=== PATIENT | female | born 1990 | race Caucasian/White ===

== ENCOUNTER 2019-08-25 19:27 | Outpatient (REF) | payer MEDICAID, SELFPAY ==
[2019-08-25 20:19] LABS: HCT 38.4 % (36.0-46.0); HGB 13.6 g/dL (12.0-15.5); Mean Corp. HGB Concentration 35.4 g/dL (32.0-36.0); Mean Corpuscular Volume 84.8 fL (80-95); Mean Platelet Volume 10.7 fL (8.0-11.0); Platelet Count 327 x1000/uL (130-400); RBC 4.53 m/cumm (4.00-5.20); RBC Distribution Width 12.3 % (11.7-14.6); White Blood Cell Count 5.87 k/cumm (4.4-10.8)
[2019-08-25 20:53] LABS: ESR 7 mm/hr (0-20)
[2019-08-25 21:42] LABS: C-Reactive Protein 0.23 mg/dL (0.0-0.3); TSH (W/Ref FT4) 1.85 uIU/mL (0.36-3.74)
[2019-08-27 14:59] LABS: ANA Interpretation Negative (Negative)
== END 2019-08-25 19:47 ==
LOC: NCHCN 19:27
PROVIDERS: Visit Provider Nurse Practitioner Family
DX: M25.551 Pain in right hip (principal); R53.83 Other fatigue
CPT/HCPCS: 85027; 85652; 84443; 86038; 86140

== ENCOUNTER 2021-03-28 14:46 | Outpatient (REF) | payer MEDICAID, SELFPAY ==
[2021-03-30 11:34] LABS: COVID-19 RT-PCR UVMMC Result Negative (Negative)
== END 2021-03-28 14:47 | disposition home or self-care (01) ==
LOC: NCHCN 14:46
PROVIDERS: Visit Provider Nurse Practitioner Family
DX: Z20.822 Contact with and (suspected) exposure to COVID-19 (principal)
CPT/HCPCS: U0003

== ENCOUNTER → 2021-07-18 01:37 | Outpatient (CLI) | payer MEDICAID, SELFPAY ==
--- NOTE | 2021-07-18 06:30 | DI.CT_ITS ---
Exam(s) CT SINUS WO EXAM: CT SINUS WO CLINICAL HISTORY: r/o sinusitis - chronic, chronic facial pain, headache, chronic rhinitis. TECHNIQUE: Imaging Protocol: Axial computed tomography images with coronal and sagittal reformatted images were created and reviewed. No IV Contrast COMPARISON: No exams were available for comparison FINDINGS: MAXILLARY SINUSES: No significant mucosal thickening nor fluid levels. There is no evidence of bone dehiscence. OSTIOMEATAL UNITS: Patent bilaterally ETHMOIDAL AIR CELLS: Well aerated. No mucosal thickening nor fluid levels. SPHENOID SINUSES: Well aerated. No mucosal thickening nor fluid levels. FRONTAL SINUSES: Not developed. NASAL SEPTUM AND TURBINATES:Nasal septum is midline with no evidence of significant nasal septal spur . There is no evidence of pili bullosa. IMPRESSION: 1. No significant findings on this CT scan of the paranasal sinuses. 2. 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 RADIATION DOSE DELIVERED: 113.82mGy.cm Total DLP DATA REPOSITORY: All CT scans at this facility are submitted to the National Radiology Data Registry (NRDR) Dose Index Registry (DIR) with the [employer] (A[employer]). RADIATION OPTIMIZATION: All CT scans at this facility use at least one of these dose optimization te chniques: automated exposure control; mA and/or kV adjustment per patient size (includes targeted exa ms where dose is matched to clinical indication); or iterative reconstruction.
== END ==
PROVIDERS: PCP Nurse Practitioner Family; Visit Provider Otolaryngology
DX: R51.9 Headache, unspecified (principal); J31.0 Chronic rhinitis; G89.29 Other chronic pain
CPT/HCPCS: 70486

== ENCOUNTER 2022-01-22 18:31 | Outpatient (REF) | payer MEDICAID, SELFPAY ==
[2022-01-22 19:27] LABS: ALT 55 U/L (14-59); AST 28 U/L (15-37); Albumin 4.5 g/dL (3.4-5.0); Alkaline Phosphatase 68 U/L (46-116); Anion Gap 6.7 mmol/L (3-11); BUN 18 mg/dL (7-18); Bilirubin, Total 1.4 mg/dL (0.2-1.0); CO2 28.3 mmol/L (21.0-32.0); CREATININE 0.7 mg/dL (0.55-1.02); Calcium 9.6 mg/dL (8.5-10.1); Calculated LDL 95 mg/dL (<100); Chloride 102 mmol/L (98-107); Cholesterol 150 mg/dL (<200); Estimated GFR 117.77 (mL/min/1.73m2); Glucose 101 mg/dL (74-106); HDL Cholesterol 42 mg/dL (40-60); Potassium 4.4 mmol/L (3.5-5.1); Sodium 137 mmol/L (136-145); Triglyceride 68 mg/dL (<150)
== END 2022-01-22 18:32 | disposition home or self-care (01) ==
LOC: NCHCN 18:31
PROVIDERS: PCP Nurse Practitioner Family; Visit Provider Physician Assistant
DX: E66.9 Obesity, unspecified (principal); Z13.220 Encounter for screening for lipoid disorders; Z00.00 Encounter for general adult medical examination without abnormal findings
CPT/HCPCS: 80053; 80061

== ENCOUNTER 2024-06-05 10:11 | Emergency (ER) | payer BC, SELFPAY ==
[2024-06-05 10:12] VITALS: BP 127/85; PULSE 88; RESP 14; TEMP 36.5; O2SAT 99
--- NOTE | 2024-06-05 10:45 | DI.CT_ITS ---
Exam(s) CT HEAD WO EXAM: CT HEAD WO CLINICAL HISTORY: worsening headaches, blurred vision. TECHNIQUE: Imaging Protocol: Axial computed tomography images with coronal and sagittal reformatted images were created and reviewed COMPARISON: CT CT SINUS WO from 07/18/2021 FINDINGS: Ventricles and Extra axial spaces: Normal in size and morphology for the patient's age. Hemorrhage: None. Cerebral parenchyma: Normal. Midline shift: None. Brainstem/Cerebellum: Normal. Calvarium: Normal. Visualized Paranasal sinuses/Mastoids: Clear. Soft Tissues: Unremarkable. IMPRESSION: No acute intracranial process. RADIATION DOSE DELIVERED: 727.96mGy.cm Total DLP DATA REPOSITORY: All CT scans at this facility are submitted to the National Radiology Data Registry (NRDR) Dose Index Registry (DIR) with the [employer] (ACR). RADIATION OPTIMIZATION: All CT scans at this facility use at least one of these dose optimization te chniques: automated exposure control; mA and/or kV adjustment per patient size (includes targeted exa ms where dose is matched to clinical indication); or iterative reconstruction.
[2024-06-05 10:59] VITALS: RESP 18
[2024-06-05] MEDS: Ketorolac 15 MG/ML VIAL 7.5 MG IM (12:16)
[2024-06-05] MEDS: Bupivacaine 0.5% Pres-Free 30 ML VIAL IJ (12:18)
[2024-06-05] MEDS: Prochlorperazine 10 MG/2 ML VIAL IM (12:18)
--- NOTE | 2024-06-05 13:34 | W.ED.GENAD ---
Discharge Plan Disposition Patient Disposition: Home Condition: Stable Discharge Details Clinical Impression: Headache, Cervical radiculopathy, Left lumbar radiculopathy Primary Care Provider: Kenzie Melgar ED Provider: Meera Santos Home Meds and New Rx's Prescriptions: New prednisone 20 mg tablet 40 mg PO ONCE Qty: 10 0RF prochlorperazine maleate [Compazine] 10 mg tablet 10 mg PO Q6H PRNQty: 10 0RF Continued azelastine 137 mcg (0.1 %) aerosol,spray 1 spray intranasal BID Rx Instructions: administer into each nostril budesonide 32 mcg/actuation spray,non-aerosol 2 spray intranasal DAILY Qty: 8.43 12RF Rx Instructions: administer into each nostril Discharge Instructions Instructions: Headache, Adult ED Additional Instructions: Take the prednisone for the next week to see if it helps your back and neck pain Follow-up with the neurologist to place referral to neurology at our facility and neurosurgery at [facility] Take the Compazine as needed for headache and Tylenol for additional pain uncontrolled with Compazine Please be reevaluated should you have worsening pain strength or sensation change, or should any new concerns arise Placed an injection of bupivacaine into your occipital nerve, it did not seem to help your symptoms so I have lower suspicion that this is occipital neuralgia Referrals: Stacy Miller MD [ [facility] STAFF PHYSICIAN] - [facility] General Date/Time Provider Initiated Documentation: 06/05/24 10:12. HPI Narrative: 34-year-old female with neck and back pain, intermittent blurry vision, and persistent headaches for 6 months. No definitive diagnosis despite MRIs of cervical and lumbar spine. No fever, chills, chest pain, shortness of breath, difficulty swallowing, or changes in strength or sensation. Intermittent paresthesias in left thigh and right arm. Headaches localized on the left side. Related Data Home Medications ?Medication ?Instructions ?Recorded ?Confirmed azelastine 137 mcg (0.1 %) nasal 1 spray intranasal BID 06/11/21 06/05/24 spray budesonide 32 mcg/actuation nasal 2 spray intranasal DAILY #8.43 mL 07/23/21 06/05/24 spray prednisone 20 mg tablet 40 mg (2 x 20 mg) PO ONCE #10 tabs 06/05/24 prochlorperazine maleate 10 mg 10 mg PO Q6H PRN #10 tabs 06/05/24 tablet (Compazine) Previous Rx's ?Medication ?Instructions ?Recorded budesonide 32 mcg/actuation nasal 2 spray intranasal DAILY #8.43 mL 07/23/21 spray prednisone 20 mg tablet 40 mg (2 x 20 mg) PO ONCE #10 tabs 06/05/24 prochlorperazine maleate 10 mg 10 mg PO Q6H PRN #10 tabs 06/05/24 tablet (Compazine) Allergies Allergy/AdvReac Type Severity Reaction Status Date / Time tree and shrub pollen Allergy Other (See Verified 06/05/24 10:23 Comment) barium iodide AdvReac Intermediate Skin Rash Verified 06/05/24 10:23 sulfamethoxazole (From AdvReac Unknown Verified 06/05/24 10:23 Bactrim) trimethoprim (From Bactrim) AdvReac Unknown Unverified 06/05/24 10:23 General Stated Complaint: [facility]Medical MARTINE: 3 Exam Narrative Exam Narrative: General Appearance: Alert and oriented, no acute distress. Vital signs: Within normal limits. HEENT: Pupils equal, round, reactive to light and accommodation. No meningismus. TMs clear bilaterally. Normal facial symmetry. No mastoid tenderness. Respiratory: No respiratory distress. Cardiovascular: Regular cardiac rate and rhythm. Gastrointestinal: No abdominal tenderness. Back, Musculoskeletal: Tenderness along paraspinal muscles and occipital nerve. Extremities: Bilateral hand grasp and tact intact. Strength, sensation, and DTRs intact in upper extremities. Mildly diminished sensation in left thigh. DTRs intact in lower extremities. Skin: Warm and dry, no rash. Neurological: Cranial nerves II-XII intact. Negative Babinski. Ambulatory with steady gait. Other observations: Ambulatory with steady gait. Course Vital Signs Vital signs: Vital Signs Temperature 36.5 C 06/05/24 10:12 Pulse 88 06/05/24 10:12 Respiratory Rate 14 06/05/24 10:12 Blood Pressure 127/85 06/05/24 10:12 Pulse Oximetry 99 06/05/24 10:12 Temperature 36.5 C 06/05/24 10:12 Temperature Source Oral 06/05/24 10:12 Pulse 88 06/05/24 10:12 Respiratory Rate 18 06/05/24 10:59 Respiratory Effort Normal 06/05/24 10:59 Respiratory Depth Normal 06/05/24 10:59 Respiratory Pattern Normal 06/05/24 10:59 Blood Pressure 127/85 06/05/24 10:12 Blood Pressure Position Sitting 06/05/24 10:12 Pulse Oximetry 99 06/05/24 10:12 Oxygen Delivery Method Room Air 06/05/24 10:12 Oxygen Flow Rate 0 06/05/24 10:12 Medical Decision Making Occipital nerve block with 1 cm? bupivacaine 0.5% to greater occipital nerve and 1 cm? Marcaine 0.5% to lesser occipital nerve. Initial Assessment: 34-year-old female with neck, back pain, intermittent blurry vision, and persistent left-sided headaches. MRI of cervical and lumbar spine reviewed, showing large herniated disks. No fever, chills, chest pain, shortness of breath, or . Mildly diminished sensation to left thigh. No acute distress, pupils equal and reactive, no meningismus, tender paraspinal muscles, tender occipital nerve, normal facial symmetry, intact cranial nerves, steady gait, normal cardiac and respiratory findings. Differential Diagnosis: - Cervical and lumbar spine tenderness with paresthesias: Etiology uncertain. Occipital nerve block provided temporary relief. Referral to neurosurgery for further evaluation. - Persistent left-sided headaches: Recent ophthalmological assessment normal, visual acuity intact. Administered 10 mg intramuscular Compazine and Toradol. Chest x-ray and CT brain showed no acute abnormality. Referral to neurology for follow-up. ED Course: - Reviewed MRI of cervical spine and lumbar spine: large herniated disks. - Reviewed prior CT scan from a year ago. - Reviewed lab work from 8 days ago: mild elevation of AST. - Occipital nerve block with 1 cm? of bupivacaine 0.5% to greater occipital nerve and 1 cm? of Marcaine 0.5% to lesser occipital nerve: temporary relief for 30 minutes. - Administered 10 mg i.m. Compazine and Toradol. - Chest x-ray and CT brain: no acute abnormality. - Referral to neurosurgery for cervical spine and lumbar spine tenderness with paresthesias. - Referral to neurology for follow-up regarding headaches. Final Assessment: Reviewed imaging and lab work, provided occipital nerve block and medications, ordered chest x-ray and CT brain, and made referrals to neurosurgery and neurology. Clinical Impression: - Cervical and lumbar spine tenderness with paresthesias. - Persistent left-sided headaches. Disposition: - Follow-Up: Referral to neurosurgery for cervical spine and lumbar spine tenderness with paresthesias. Referral to neurology for follow-up regarding headaches. MDM Components Evaluation: - Number of Differential Diagnoses or Management Options: Cervical and lumbar spine tenderness with paresthesias, Persistent left-sided headaches. - Amount and Complexity of Data Reviewed: MRI of cervical spine and lumbar spine, prior CT scan, lab work, chest x-ray, CT brain. - Risk of Complication and Morbidity or Mortality: Mild elevation of AST, large herniated disks, persistent headaches. Quality:[facility] Health Related Social Needs: Health related social needs housing instability, housed, with risk of homelessness (Z59.811), food insecurity (Z59.41) PFSH All Active Problems (Updated 06/05/24 @ 12:59 by APURVA Wilkerson) Left lumbar radiculopathy (Acute) Cervical radiculopathy (Acute) Headache (Acute) Chronic facial pain (Acute) Chronic rhinitis (Acute) Medical History Anxiety Depression Endometriosis Fatigue Hip pain Nasal congestion Seasonal allergies Surgical History H/O section History of cholecystectomy S/P laparoscopic hysterectomy Social History Smoking/Tobacco Use Status: Never Smoking risk assessment performed?: Yes Alcohol Intake: current Alcohol Intake frequency: holidays/special occasions only Drug use: Daily Substance use type: marijuana Do you feel safe at home: Yes Do you feel safe in your relationship?: Yes
== END 2024-06-05 13:12 | disposition home or self-care (01) ==
PROVIDERS: Emergency Provider Physician Assistant; PCP Nurse Practitioner Family
DX: R51.9 Headache, unspecified (principal); M54.12 Radiculopathy, cervical region; M54.16 Radiculopathy, lumbar region
CPT/HCPCS: 64405; 64450; 96372; 99284; 70450; J0665; J0780; J1885

== ENCOUNTER 2024-06-08 15:52 | Outpatient (REF) | payer BC, SELFPAY ==
[2024-06-10 10:23] LABS: HIV-1/2 Ag & Ab Screen Negative (Negative)
[2024-06-10 10:38] LABS: Hepatitis C Ab w Rflx HCV PCR Negative (Negative)
== END 2024-06-08 15:53 | disposition home or self-care (01) ==
LOC: NCHCN 15:52
PROVIDERS: PCP Nurse Practitioner Family; Visit Provider Physician Assistant
DX: Z11.4 Encounter for screening for human immunodeficiency virus [HIV] (principal); Z11.59 Encounter for screening for other viral diseases
CPT/HCPCS: 86803; 87389

== ENCOUNTER 2024-12-20 09:30 | Outpatient (REF) | payer BC, SELFPAY | END 2024-12-20 09:31 | disposition home or self-care (01) | LOC: NCHCN 09:30 | PROVIDERS: PCP Physician Assistant; Visit Provider Nurse Practitioner Family | DX: R19.7 Diarrhea, unspecified (principal) | CPT/HCPCS: 82784; 83516 ==